=== PATIENT | female | born 1995 | race Caucasian/White ===

== ENCOUNTER → 2018-10-21 14:30 | Outpatient (CLI) | payer BC, SELFPAY ==
--- NOTE | 2018-10-21 14:37 | US_ITS ---
US thyroid HISTORY: ITS.REASON: THROAT FULLNESS,FAMILY H/O THYROID CA ORDERING PHYSICIAN: Tamera Traylor PATIENT AGE: 22 years Comparison: None FINDINGS: The right lobe is 4.3 x 1.4 x 1.7 cm with mostly homogeneous echogenicity. There is a 9 x 3 mm subtle area of slight decreased echogenicity along the lower pole and could be due to a small nodule versus an area of heterogeneous echogenicity. A similar smaller area decreased echogenicity is present along the lower pole at 5 mm. The left lobe is 4.1 x 1.1 x 1.6 cm and contains a 3 mm cyst along the lower pole. The isthmus has an unremarkable appearance. IMPRESSION: 1. 2 areas of decreased echogenicity on the right which could be due to small nodules versus heterogeneous echogenicity. Consider 6 month follow-up to confirm stability. 2. Small cyst on the left
== END ==
PROVIDERS: PCP Nurse Practitioner; Visit Provider Nurse Practitioner
DX: R68.89 Other general symptoms and signs (principal); Z80.8 Family history of malignant neoplasm of other organs or systems
CPT/HCPCS: 76536

== ENCOUNTER → 2022-09-25 14:14 | Outpatient (CLI) | payer BC, SELFPAY ==
[2022-09-25 18:55] LABS: Adenovirus,PCR Not Detected (NotDetected); Bordetella Pertussis Not Detected (NotDetected); Chlamydophila Pneumoniae, PCR Not Detected (NotDetected); Coronavirus 19, PCR Not Detected (NotDetected); Coronavirus 229E Not Detected (NotDetected); Coronavirus NL63 Not Detected (NotDetected); Coronavirus OC43 Not Detected (NotDetected); Coronovirus HKU1,PCR Not Detected (NotDetected); Human Metapneumovirus Not Detected (NotDetected); Influenza A, PCR Not Detected (NotDetected); Influenza AH1, 2009 Not Detected (NotDetected); Influenza AH1, PCR Not Detected (NotDetected); Influenza AH3,PCR Not Detected (NotDetected); Influenza B, PCR Not Detected (NotDetected); Mycoplasma Pneumoniae, PCR Not Detected (NotDetected); Parainfluenza 1, PCR Not Detected (NotDetected); Parainfluenza 2, PCR Not Detected (NotDetected); Parainfluenza 3, PCR Not Detected (NotDetected); Parainfluenza 4, PCR Not Detected (NotDetected); Respiratory Syncytial Virus Not Detected (NotDetected); Rhinovirus/Enterovirus Not Detected (NotDetected)
== END ==
PROVIDERS: PCP Nurse Practitioner; Visit Provider Nurse Practitioner
DX: J06.9 Acute upper respiratory infection, unspecified (principal); R05.9 Cough, unspecified; R51.9 Headache, unspecified; R19.7 Diarrhea, unspecified
CPT/HCPCS: 87581; 87632; 87798; C9803; U0003; U0005

== ENCOUNTER 2023-07-14 12:27 | Emergency (ER) | payer OTHER, SELFPAY ==
[2023-07-14 12:28] VITALS: BP 127/75; PULSE 81; RESP 19; TEMP 36.7; O2SAT 99; BMI 25.4
[2023-07-14 12:44] VITALS: BP 127/75; PULSE 76; RESP 18; O2SAT 99
--- NOTE | 2023-07-14 12:48 | PC.NURSE ---
Dr. Gaytan at bedside
[2023-07-14 13:00] VITALS: BP 127/77; PULSE 72; O2SAT 97
--- NOTE | 2023-07-14 13:03 | HMH.EDGENADL ---
Discharge Plan Disposition Patient Disposition: Home, Self-Care Chief Complaint: Eye Problems Prescriptions Prescriptions: No Action montelukast 10 mg tablet 10 mg PO DAILY Qty: 90 1RF norethindrone ac-eth estradiol [Loestrin 11/08 (21)] 1-20 mg-mcg tablet 1 tab PO DAILY Qty: 63 1RF fluconazole 150 mg tablet 150 mg PO WEEKLY Qty: 2 1RF nystatin 100,000 unit/gram cream 1 applic topical BID Qty: 30 1RF Referrals Follow up/Referrals: Sung Mujica MD [Primary Care Provider] - See instructions Activity Restrictions/Add. Instructions Additional Instructions/Restrictions: Call your family doctor to establish care for this visit to the emergency department and schedule follow-up within 48 hours to ensure improvement. If you have any worsening of your condition or any other concerning signs or symptoms, return to the emergency department or your primary care doctor for further evaluation. Take Tylenol 1000 mg every 6 hours (4 times daily) and ibuprofen 400 mg every 6 hours (4 times daily) as needed with food and water to prevent GI upset and kidney damage. Clinical Impressions Clinical Impression: Migraine with aura Qualifiers: Status migrainosus presence: without status migrainosus Intractability: not intractable Qualified Code(s): G43.109 - Migraine with aura, not intractable, without status migrainosus Discharge ED Provider: Fernando Gaytan General Adult HPI General Chief complaint: Eye Problems Stated complaint: blurry vision Time Seen by Provider: 07/14/23 12:31 Mode of Arrival: Family Vehicle Source of Information: Patient Limitations: No Limitations Description of Symptoms (Recalled from ER Triage Doc. by RN): Pt c/o spontaneous blurry vision bilaterally @ 1210 while at lunch. States it initally was her peripheral vision that suddenly changed and several minutes later the blurriness effected her central vision as well. Reports a weird feeling in her head. Denies any recent trauma, fall, or LOC. Denies any n/v/d, gait abnormality, or dizziness. States she has been fighting a sinus cold and took Decongestant medication this morning, no reactions to it in the past. No redness, drainage, orpain to eyes. R 20/15, L 20/20. History of Present Illness HPI narrative: 27-year-old female with remote history of migraine and TBI presenting with blurry vision. Patient states that she started having a lightheadedness or weird feeling in her head. Started losing peripheral vision and states seeing wavy lines, in the outside of her vision. Shortly thereafter started having wavy lines in her central vision. Because of this and concern for blurry vision, came to the emergency department for further evaluation. Patient states she is getting over a cold, taking decongestions, but this is normal for her. No new medications. No DVT or PE risk factors, no facial swelling, unilateral deficits, difficulty walking, or any other concerns at this time. On my evaluation, patient stating that blurry vision is largely resolved and she is starting to have mild headache that is nonradiating Related Data Previous Rx's Medication Instructions Recorded montelukast 10 mg tablet 10 mg PO DAILY #90 tabs 03/12/23 norethindrone acetate 1 mg-ethinyl 1 tab PO DAILY #63 tabs 03/12/23 estradiol 20 mcg tablet (Loestrin) fluconazole 150 mg tablet 150 mg PO WEEKLY #2 tabs 05/29/23 nystatin 100,000 unit/gram topical 1 applic topical BID #30 grams 05/29/23 cream Allergies Allergy/AdvReac Type Severity Reaction Status Date / Time aspirin AdvReac Severe Verified 05/29/23 13:34 [facility] [place] Disclaimer: The information contained in this section may have been updated after the patient was seen, as this information can be updated by other users. Medical History Allergic rhinitis Bulging disc Surgical History Joel
[2023-07-14 13:30] VITALS: BP 131/69; PULSE 82; O2SAT 100
[2023-07-14 13:31] VITALS: BP 130/79; PULSE 72; RESP 18; TEMP 36.8; O2SAT 99
--- NOTE | 2023-07-14 13:41 | PC.NURSE ---
As I was going to d/c pt, she and her friend reported that there were new symptoms of mouth, face, and left arm numbness. Reports acute weakness that she felt very tired all of sudden . NIHSS performed at this time and it is 0. notified of this. States he will re-evaluate pt.
[2023-07-14 14:00] VITALS: BP 134/89; PULSE 78; O2SAT 100
--- NOTE | 2023-07-14 14:18 | PC.NURSE ---
DR KEARNEY AT BEDSIDE
--- NOTE | 2023-07-14 14:34 | XR_ITS ---
FINAL REPORT TECHNIQUE: Single view chest CLINICAL HISTORY: RUL rhonchi cough and dizziness FINDINGS: A single view of the chest was obtained. The heart and mediastinum are within normal limits. The lungs are clear. There is no pneumothorax. Osseous structures are unremarkable. IMPRESSION: No acute cardiopulmonary process. Reviewed, Interpreted and Dictated by Joan Suresh MD Transcribed by Dang Crum Authenticated and [facility]
--- NOTE | 2023-07-14 14:52 | PC.NURSE ---
XR AT BEDSIDE
[2023-07-14 15:17] LABS: Urine Pregnancy, HCG Qual. Negative (Negative)
--- NOTE | 2023-07-14 15:38 | PC.NURSE ---
telecasting technician at bedside to complete CXR. They were waiting for negative test.
== END 2023-07-14 16:02 | disposition home or self-care (01) ==
PROVIDERS: Emergency Provider Emergency Medicine; PCP Family Medicine
DX: G43.109 Migraine with aura, not intractable, without status migrainosus (principal); J30.9 Allergic rhinitis, unspecified
CPT/HCPCS: 71045; 81025; 99283

== ENCOUNTER 2023-10-23 10:51 | Outpatient (CLI) | payer OTHER, SELFPAY ==
[2023-10-23 11:19] LABS: Hemoglobin A1C 5.1 % (4.0-6.0)
[2023-10-23 11:59] LABS: Alanine Aminotransferase 29 U/L (12-78); Albumin Level 4.9 g/dl (3.5-5.0); Alkaline Phosphatase 71 U/L (38-126); Anion Gap 10.7 mEq/L (5-15); Aspartate Amino Transferase 31 U/L (14-36); Bilirubin,Total 0.6 mg/dl (0.2-1.3); Blood Urea Nitrogen 11 mg/dl (7-17); Calcium 9.5 mg/dl (8.4-10.2); Carbon Dioxide 28 mmol/L (22.0-30.0); Chloride 100 mmol/L (98-107); Chol/HDL Ratio 2.3 (1-3.5); Cholesterol 152 mg/dl (140-200); Estimated Glomerular Filt Rate 100 ml/min (>60); GFR (African American) 121 ML/MIN (>60); Globulin 2.5 g/dL (1.3-3.2); Glucose 83 mg/dl (74-100); HDL Cholesterol 67 mg/dl (40-60); Potassium 3.7 mmoL/L (3.5-5.1); Sodium 135 mmol/L (136-145); Total Protein,Serum 7.4 g/dl (6.3-8.2); Triglycerides 53 mg/dl (30-150); VLDL Cholesterol 11 mg/dL (0-40)
[2023-10-23 12:10] LABS: Direct LDL Cholesterol 70.62 mg/dL (100-129)
[2023-10-23 12:31] LABS: Thyroid Stimulating Hormone 3.15 uIU/mL (0.465-4.68)
== END 2023-10-23 23:59 ==
PROVIDERS: PCP Nurse Practitioner; Visit Provider Nurse Practitioner
DX: Z02.6 Encounter for examination for insurance purposes (principal); Z13.1 Encounter for screening for diabetes mellitus; Z13.220 Encounter for screening for lipoid disorders; Z13.29 Encounter for screening for other suspected endocrine disorder
CPT/HCPCS: 36415; 80053; 80061; 83036; 84443

== ENCOUNTER 2024-10-12 07:27 | Outpatient (CLI) | payer OTHER, SELFPAY ==
[2024-10-12 08:28] LABS: Hemoglobin A1C 4.8 % (4.0-6.0)
[2024-10-12 10:15] LABS: Albumin Level 4.3 g/dl (3.5-5.0); Chloride 102 mmol/L (98-107); Potassium 4.5 mmoL/L (3.5-5.1); Sodium 135 mmol/L (136-145)
[2024-10-12 10:17] LABS: Alanine Aminotransferase 19 U/L (12-78); Aspartate Amino Transferase 26 U/L (14-36); Blood Urea Nitrogen 10 mg/dl (7-17); Estimated Glomerular Filt Rate 119 ml/min (>60); GFR (African American) 144 ML/MIN (>60)
[2024-10-12 10:18] LABS: Albumin/Globulin Ratio 1.8 (1.1-1.8); Alkaline Phosphatase 57 U/L (38-126); Anion Gap 9.5 mEq/L (5-15); Bilirubin,Total 0.4 mg/dl (0.2-1.3); Calcium 9.5 mg/dl (8.4-10.2); Carbon Dioxide 28 mmol/L (22.0-30.0); Chol/HDL Ratio 2.4 (1-3.5); Cholesterol 153 mg/dl (140-200); Globulin 2.4 g/dL (1.3-3.2); Glucose 82 mg/dl (74-100); HDL Cholesterol 63 mg/dl (40-60); Total Protein,Serum 6.7 g/dl (6.3-8.2); Triglycerides 42 mg/dl (30-150); VLDL Cholesterol 8 mg/dL (0-40)
[2024-10-12 10:29] LABS: Direct LDL Cholesterol 70.76 mg/dL (100-129)
== END 2024-10-12 23:59 | disposition home or self-care (01) ==
LOC: LAB 07:29
PROVIDERS: PCP Nurse Practitioner; Visit Provider Nurse Practitioner Family
DX: Z00.00 Encounter for general adult medical examination without abnormal findings (principal)
CPT/HCPCS: 36415; 80053; 80061; 83036